=== PATIENT | female | born 1965 | race Caucasian/White ===

== ENCOUNTER → 2021-04-21 | Day surgery (SDC) | payer OTHER ==
[~2021-04-21] VITALS: Ht 160 cm; Wt 85.4 kg
[~2021-04-21] MED LIST: ALPR0.254 PO; DULO60CA7 PO; ESZO3TAB28 PO; GLIP10TA13 PO; IV RINGERS,LACTATED 1000ML 1,000 ML IV SCH; LAMO100T8 PO; LISI-130 PO
[2021-04-21 07:55] VITALS: BP 170/83
[2021-04-21 09:15] VITALS: BP 132/77
--- NOTE | 2021-04-21 16:41 | CONS ---
DATE OF CONSULTATION: 04/21/2021 GASTROINTESTINAL CONSULTATION REASON FOR CONSULTATION: Colorectal screening. HISTORY OF PRESENT ILLNESS: This 56-year-old female whose past medical history is significant for diabetes is seen for screening colon. Bowel habits are regular without diarrhea or constipation. There has been no melena and/or hematochezia. Weight and appetite are stable. She is otherwise without additional complaints. PAST MEDICAL AND SURGICAL HISTORY: Status post , status post hysterectomy, status post tubal ligation, status post bunion surgery. ALLERGIES: None. MEDICATIONS: Include alprazolam, Cymbalta, Lunesta, glipizide, lamotrigine, and lisinopril. FAMILY HISTORY: Significant for breast cancer with mother and diabetes with both parents. REVIEW OF SYSTEMS: HEENT: There is no decreased hearing or visual acuity issues. CARDIAC: No history of hypertension, palpitations, syncope. ENDOCRINE: History of diabetes. NEUROLOGIC: There is no history of stroke, migraine, neuropathy. PSYCHIATRIC: There is history of insomnia. DERMATOLOGIC: No skin rashes or pruritus. MUSCULOSKELETAL: Osteoarthrosis. GASTROINTESTINAL: See history of present illness. HEMATOLOGIC: No bleeding, bruising coagulopathy. PULMONARY: No shortness of breath, productive cough, asthma. RENAL: No dysuria, frequency, hematuria. PHYSICAL EXAMINATION: GENERAL: Reveals a well-nourished, well-developed female, who is alert, cooperative, no acute distress. VITAL SIGNS: Temperature 97.4, pulse 76, respiratory rate 18. LUNGS: Clear. CARDIOVASCULAR: Reveals an S1, S2, without S3, S4 or appreciable murmur. ABDOMEN: Reveals a soft abdomen, normal bowel sounds, without appreciable hepatosplenomegaly. EXTREMITIES: Reveals no cyanosis, clubbing or edema. IMPRESSION: Colorectal screening is warranted at this time. Risks and benefits of procedure including risk of hemorrhage and perforation with operation were discussed. The patient is willing to proceed at this time. I thank Dr. Charmaine Ni for allowing me to consult and participate in this patient's care. BERNICE/MONSERRAT ROMERO: Aisha TID: [id number] CC: Charmaine Ni MD
--- NOTE | 2021-04-23 10:08 | PATHOLOGY ---
[facility] Accession Number: [id number] . 01 Material submitted: . PART A: rectum - RECTAL POLYP BIOPSY PART B: sigmoid colon - SIGMOID POLYP BIOPSY . 02 Diagnosis: A. Colorectal biopsies, rectal polyps: - Segments of superficial rectal mucosa showing hyperplastic changes, consistent with hyperplastic polyps. . B. Colon biopsies, sigmoid polyps: - Hyperplastic polyps. ([facility]; 04/22/2021) RUST 04/22/2021 1514 Local . 02 Comment: There are no adenomatous changes or evidence of malignancy. (JP:pit; 04/22/2021) . 02 Electronically signed: . Ismael Barr MD, Pathologist NPI- [id number] . 01 Gross description: . A. The specimen is received in formalin, labeled "Muñoz, Delicia, rectal polyp BX". Received are 2 segments of white-echols tissue measuring 0.2 and 0.3 cm in maximum dimensions. The specimen is entirely submitted in cassette A1. . B. The specimen is received in formalin, labeled "Muñoz, Delicia, sigmoid polyp BX". Received are 4 segments of white-echols tissue ranging in size from 0.2-0.5 cm in maximum dimensions. The specimen is entirely submitted in cassette B1. ([facility]; 04/21/2021) NRI/NRI 04/21/2021 1808 Local . 02 Pathologist provided ICD-10: K63.5 . 02 CPT . 389739, [id number] Specimen Comment: A courtesy copy of this report has been sent to [phone], [phone] Specimen Comment: [id number] Specimen Comment: Report sent to / DR ROSS Specimen Comment: A duplicate report has been generated due to demographic updates. Performed at: 01 [facility] [address], [place] [id number] MD Stef Medellin MD Phone: [phone] Performed at: 02 [facility] [address] [place], [place] [id number] MD Ismael Barr MD Phone: [phone]
== END | disposition home or self-care (01) ==
LOC: SURG 07:34
PROVIDERS: ATTEND Internal Medicine Gastroenterology
DX: Z12.11 Encounter for screening for malignant neoplasm of colon (principal); K64.0 First degree hemorrhoids; K63.5 Polyp of colon; K62.1 Rectal polyp; K63.89 Other specified diseases of intestine; I10 Essential (primary) hypertension; E11.9 Type 2 diabetes mellitus without complications; E03.9 Hypothyroidism, unspecified; F41.9 Anxiety disorder, unspecified; F32.9 Major depressive disorder, single episode, unspecified; Z90.710 Acquired absence of both cervix and uterus; Z98.51 Tubal ligation status; Z98.890 Other specified postprocedural states; Z87.891 Personal history of nicotine dependence; Z79.899 Other long term (current) drug therapy
CPT/HCPCS: 45380